=== PATIENT | female | born 1995 | race American Indian/Alaskan Native ===

== ENCOUNTER 2019-06-26 06:56 | Emergency (ER) | payer SELFPAY ==
[2019-06-26 08:48] LABS: Hematocrit 34.7 % (30.3-42.9); Hemoglobin 11.3 gm/dl (10.1-14.3); Mean Corpuscular HGB Conc 33 % (30-34); Mean Corpuscular Volume 77 fl (79-97); Platelet Count 469 K/mm3 (140-440); Red Blood Count 4.52 M/mm3 (3.65-5.03); Red Cell Distribution Width 17.9 % (13.2-15.2)
[2019-06-26 09:01] LABS: Bilirubin,Urine NEG (Negative); Blood,Urine LG (Negative); Color,Urine Yellow (Yellow); Mucus,Urine FEW /HPF; Protein,Urine <15 mg/dL mg/dL (Negative); Urobilinogen,Urine < 2.0 mg/dL (<2.0); WBC,Urine < 1.0 /HPF (0.0-6.0)
[2019-06-26 09:05] LABS: RBC,Urine > 182.0 /HPF (0.0-6.0)
[2019-06-26 09:07] LABS: BUN/Creatinine Ratio 17; Blood Urea Nitrogen 12 mg/dL (7-17); Calcium 8.9 mg/dL (8.4-10.2); Hemolysis Index 2
[2019-06-26 09:07] LABS: HCG Qualitative,Urine Negative (Negative)
--- NOTE | 2019-06-26 10:42 | Emergency Department Report ---
ED Female HPI - General Chief complaint: Abdominal Pain Stated complaint: PELVIC PAIN VAGINAL BLEEDING Time Seen by Provider: 06/26/19 10:16 Source: patient Mode of arrival: Ambulatory Limitations: No Limitations - History of Present Illness Initial comments: 24-year-old female with history of prolonged and irregular. Since the age of 15 presents to ED with complaint of vaginal bleeding and abdominal cramping. Patient states her current menstrual period has been on for 4 months. Patient states this is the longest that it has ever been. Patient present to ED today because she passed a large blood clot at home. Patient is unsure if she has a history of fibroids, states has never been seen by hospital medicine director. Patient reported some lower abdominal cramping, which is not uncommon with her menstrual periods. Patient denies any chest pain, shortness of breath, dizziness. MD Complaint: vaginal bleeding -: month(s) (4) Location: suprapubic Severity: moderate Quality: cramping Consistency: constant Improves with: none Worsens with: menstrual period Are you Now?: No Associated Symptoms: abdominal pain. denies: vaginal discharge, nausea/vomiting, fever/chills, shortness of breath, syncope - Related Data Previous Rx's Medication Instructions Recorded Last Taken Type Naproxen [Naprosyn] 500 mg PO BID #20 tablet 06/26/19 Unknown Rx medroxyPROGESTERone ACETATE 5 mg PO QDAY #7 tablet 06/26/19 Unknown Rx [Provera] traMADoL [Ultram] 50 mg PO Q6HR PRN #7 tablet 06/26/19 Unknown Rx Allergies Allergy/AdvReac Type Severity Reaction Status Date / Time No Known Allergies Allergy Verified 06/26/19 06:59 ED Review of Systems ROS: Stated complaint: PELVIC PAIN VAGINAL BLEEDING Other details as noted in HPI Comment: All other systems reviewed and negative Respiratory: denies: shortness of breath Cardiovascular: denies: chest pain Gastrointestinal: abdominal pain Genitourinary: abnormal menses ED Past Medical Hx - Social History Smoking Status: Never Smoker - Medications Home Medications: Home Medications Medication Instructions Recorded Confirmed Last Taken Type Naproxen [Naprosyn] 500 mg PO BID #20 tablet 06/26/19 Unknown Rx medroxyPROGESTERone ACETATE 5 mg PO QDAY #7 tablet 06/26/19 Unknown Rx [Provera] traMADoL [Ultram] 50 mg PO Q6HR PRN #7 tablet 06/26/19 Unknown Rx ED Physical Exam - General Limitations: No Limitations General appearance: alert, in no apparent distress - Head Head exam: Present: atraumatic, normocephalic - Eye Eye exam: Present: normal appearance, EOMI - ENT ENT exam: Present: mucous membranes moist - Neck Neck exam: Present: normal inspection - Respiratory Respiratory exam: Present: normal lung sounds bilaterally. Absent: respiratory distress - Cardiovascular Cardiovascular Exam: Present: regular rate, normal rhythm - GI/Abdominal GI/Abdominal exam: Present: soft, tenderness (mild suprapubic tenderness). Absent: distended - Extremities Exam Extremities exam: Present: normal inspection - Neurological Exam Neurological exam: Present: alert, oriented X3 - Psychiatric Psychiatric exam: Present: normal affect, normal mood - Skin Skin exam: Present: warm, dry, intact, normal color ED Course Vital Signs 06/26/19 06/26/19 06/26/19 08:23 11:47 11:49 Temperature 98.0 F 98.7 F 98.7 F Pulse Rate 74 77 Respiratory 20 Rate Blood Pressure 127/78 Blood Pressure 122/68 [Left] O2 Sat by Pulse 100 100 Oximetry ED Medical Decision Making - Lab Data Result diagrams: 06/26/19 08:28 06/26/19 08:28 - Medical Decision Making DUB x several years now. Vitals and hemoglobin normal. Pt likely has fibroid uterus. Rx for provera given. Outpt f/u advised Return precautions given. - Differential Diagnosis DUB Critical care attestation.: If time is entered above; I have spent that time in minutes in the direct care of this critically ill patient, excluding procedure time. ED Disposition Clinical Impression: DUB (dysfunctional uterine bleeding) Disposition: [id number]-01 TO HOME OR SELFCARE Is pt being admited?: No Condition: Stable Instructions: Dysfunctional Uterine Bleeding (ED) Prescriptions: Naproxen [Naprosyn] 500 mg PO BID #20 tablet medroxyPROGESTERone ACETATE [Provera] 5 mg PO QDAY #7 tablet traMADoL [Ultram] 50 mg PO Q6HR PRN #7 tablet PRN Reason: Pain Referrals: DONIS LOVING MD [Staff Physician] - 3-5 Days [facility] [Provider Group] - 3-5 Days [facility] [Outside] - 3-5 Days
[2019-06-26] MEDS ORDERED: IBUPROFEN 800 MG TAB PO ONE (11:10)
[2019-06-26] MEDS ORDERED: traMADol 50 MG TAB PO ONE (11:11)
[2019-06-26 11:50] VITALS: BP 122/68
== END 2019-06-26 11:51 | disposition home or self-care (01) ==
LOC: ED 06:56
DX: N93.8 Other specified abnormal uterine and vaginal bleeding (principal); Z79.899 Other long term (current) drug therapy
CPT/HCPCS: 36415; 80048; 81001; 81025; 85027